=== PATIENT | female | born 1950 | race Caucasian/White ===

== ENCOUNTER 2017-06-24 22:04 | Inpatient (IN) | payer OTHER, BC ==
[~2017-06-24] VITALS: Ht 167.6 cm; Wt 81.0 kg
[~2017-06-24 22:04] MED LIST: IRON325 M1 PO; LIPITOR10 MG PO; PRILOSEC OTC20 MG PO; PROLIA60 MG/1 ML SC; SEROQUEL50 MG PO; TIMOPTIC-0100 DROP/1 RIGHT EYE
[2017-06-25 11:52] VITALS: BP 127/80
[2017-06-25 18:34] VITALS: BP 122/62
[2017-06-25 20:33] VITALS: BP 130/67
[2017-06-26 00:10] VITALS: BP 109/64
[2017-06-26 04:16] VITALS: BP 105/55
[2017-06-26 06:49] LABS: MCV 94.2 FL (83-99)
[2017-06-26 08:08] VITALS: BP 86/52
[2017-06-26 11:44] VITALS: BP 104/58
[2017-06-26 15:19] VITALS: BP 109/53
[2017-06-26 19:59] VITALS: BP 106/57
[2017-06-27] VITALS: BP 117/56
[2017-06-27 04:15] VITALS: BP 114/56
[2017-06-27 06:48] LABS: MCV 92.6 FL (83-99)
[2017-06-27 08:00] VITALS: BP 107/72; BP 149/70
[2017-06-27] MEDS ORDERED: TYLENOL REGULA325 MG PO (09:00)
[2017-06-27] MEDS ORDERED: BENADRYL25 MG PO (09:00)
[2017-06-27] MEDS ORDERED: SENNA PLUS TAB1 EACH PO (09:01)
[2017-06-27] MEDS ORDERED: LIDOCAINE1 EACH TD (09:02)
[2017-06-27] MEDS ORDERED: OXYCODONE HCL5 MG PO (09:02)
[2017-06-27] MEDS ORDERED: ELIQUIS2.5 MG PO (09:02)
[2017-06-27 12:07] VITALS: BP 123/77
== END 2017-06-27 13:52 | disposition home or self-care (01) | DRG 470 ==
LOC: ENRESERV 22:04 → 2SOUTH 06-25 11:14 → 3WEST 06-25 11:22 → 2SOUTH 06-25 11:32 → 3WEST 06-25 18:27 → 2SOUTH 07-02 10:56
PROVIDERS: Orthopaedic Surgery
PROC: 0SRC0J9 Replacement of Right Knee Joint with Synthetic Substitute, Cemented, Open Approach (ICD-10-PCS; principal; 2017-06-25)
DX: M17.11 Unilateral primary osteoarthritis, right knee (principal); M25.561 Pain in right knee; G89.29 Other chronic pain; H40.9 Unspecified glaucoma; Z68.29 Body mass index [BMI] 29.0-29.9, adult; Z80.9 Family history of malignant neoplasm, unspecified; Z82.49 Family history of ischemic heart disease and other diseases of the circulatory system
CPT/HCPCS: 85014; 85018; C1713; C1776; J0131; J0690; J1100; J1885; J2250; J2405; J2795; J3010; J7050; Q0175